=== PATIENT | male | born 1955 | race Caucasian/White ===

== ENCOUNTER 2018-03-08 20:22 | Emergency (ER) | payer SELFPAY ==
--- NOTE | 2018-03-08 21:22 | ED ---
Lower Extremity - HPI Summary HPI Summary: A 62 y/o male, accompanied by his , presents to [facility] with a chief complaint of right leg pain since the night of 03/05/18. At triage the patient rated his pain as a 0/10 in severity. He describes his pain as an aching pain. He also describes his pain as a strained muscle near his groin. Sitting down alleviates his pain while walking aggravates his pain. The patient reports that he has been seeing Dr. Shah. He denies gaining or losing weight, diaphoresis , fever, chills, erythema (eyes), sore throat, chest pain, shortness of breath, cough, abdominal pain, vomiting, nausea, dysuria, hematuria, rash and dizziness. The patient reports some swelling of his legs, claiming that his sidewalk repairer says that he has pitting edema. He denies taking water pills. He reports that he has an inguinal hernia on his right side and that it is always coming in and out. He reports sleeping on one thin pillow at night. He claims that he just got over an upper respiratory infection. Per triage note the patient denies a Hx of blood clots. BP in room 169/97. He is concerned because over the past year he has been very sedentary, sitting at his desk for 12 hours a day. - History of Current Complaint Chief Complaint: EDExtremityUpper Stated Complaint: RT LEG PAIN Time Seen by Provider: 03/08/18 20:52 Hx Obtained From: Patient, Family/Yard Warehouse Worker - Mechanism Of Injury: Unknown Onset of Pain: Days Onset/Duration: Days Severity Initially: Mild Severity Currently: Mild Pain Intensity: 0 Pain Scale Used: 0-10 Numeric Timing: Constant, Lasting Days Location: Is Diffuse Character Of Pain: Aching Associated Signs And Symptoms: Positive: Swelling. Negative: Fever, Dizziness Aggravating Factor(s): Standing Alleviating Factor(s): Other - sitting Able to Bear Weight: Yes - Allergies/Home Medications Allergies/Adverse Reactions: Allergies Allergy/AdvReac Type Severity Reaction Status Date / Time No Known Allergies Allergy Verified 03/08/18 20:29 PMH/Surg Hx/FS Hx/Imm Hx Endocrine/Hematology History: Denies: Hx Diabetes Cardiovascular History: Reports: Other Cardiovascular Problems/Disorders - CAD Denies: Hx Congestive Heart Failure, Hx Hypertension History: Denies: Hx Renal Disease - Surgical History Surgery Procedure, Year, and Place: RCA STENT 2009 Infectious Disease History: No Infectious Disease History: Denies: Traveled Outside the [place] in Last 30 Days - Family History Known Family History: Negative: Cardiac Disease, Hypertension, Diabetes - Social History Alcohol Use: Daily Alcohol Amount: 2-3 glasses wine Substance Use Type: Reports: None Review of Systems Negative: Fever, Chills, Skin Diaphoresis Negative: Erythema Negative: Sore Throat Negative: Chest Pain Negative: Shortness Of Breath, Cough Negative: Abdominal Pain, Vomiting, Nausea Negative: dysuria, hematuria Positive: Myalgia, Edema Negative: Rash Neurological: Negative - dizziness All Other Systems Reviewed And Are Negative: Yes Physical Exam - Summary Physical Exam Summary: Constitutional: Well-developed, Well-nourished, Alert. (-) Distressed Skin: Warm, Dry HENT: Normocephalic; Atraumatic Eyes: Conjunctiva normal Neck: Musculoskeletal ROM normal neck. (-) JVD, (-) Stridor, (-) Tracheal deviation Cardio: Rhythm regular, rate normal, Heart sounds normal; Intact distal pulses; The pedal pulses are 2+ and symmetric. Radial pulses are 2+ and symmetric. (-) Murmur Pulmonary/Chest wall: Effort normal. (-) Respiratory distress, (-) Wheezes, (-) Rales Abd: Soft, (-) epigastric tenderness, (-) Distension, (-) Guarding, (-) Rebound Musculoskeletal: Able to tolerate flexion of the hip and lateral rotation of the leg (-) Edema Lymph: (-) Cervical adenopathy Neuro: Alert, Oriented x3 Psych: Mood and affect Normal Gu: no palpable hernias Triage Information Reviewed: Yes Vital Signs On Initial Exam: Initial Vitals Temp Pulse Resp BP Pulse Ox 98.6 F 80 16 153/97 96 03/08/18 20:25 03/08/18 20:25 03/08/18 20:25 03/08/18 20:25 03/08/18 20:25 Vital Signs Reviewed: Yes Diagnostics - Vital Signs Vital Signs Temp Pulse Resp BP Pulse Ox 03/08/18 20:25 98.6 F 80 16 153/97 96 - Laboratory Lab Statement: Any lab studies that have been ordered have been reviewed, and results considered in the medical decision making process. - Ultrasound No standard instances Ultrasound Interpretation Completed By: ED Physician Summary of Ultrasound Findings: Negative for DVT. Discussed with process technician. Pending official imaging report. Lower Extremity Course/Dx - Course Course Of Treatment: A 62 y/o male, accompanied by his , presents to [facility] with a chief complaint of right leg pain since the night of 03/05/18. The physical exam revealed no palpable hernias and that he was able to tolerate flexion of the hip and lateral rotation of the leg. Discussed case with Juan Alberto the technical training instructor, who reported no DVT. The patient will be discharged. He is agreeable with this plan. - Diagnoses Provider Diagnoses: Hip strain Discharge - Sign-Out/Discharge Documenting (check all that apply): Patient Departure - DC Patient Received Moderate/Deep Sedation with Procedure: No - Discharge Plan Condition: Stable Disposition: HOME Referrals: [facility] [facility] [place] [facility] [place]Outside] (3-5 days) Additional Instructions: Return to the ED if you experience any new or worsening symptoms. - Attestation Statements Document Initiated by Scribe: Yes Documenting Scribe: Dannie Tai Provider For Whom Scribe is Documenting (Include Credential): Cole Carmona MD Scribe Attestation: Dannie Barry, scribed for Cole Carmona MD on 03/08/18 at [id number].
[2018-03-08 22:54] VITALS: BP 138/91
== END 2018-03-08 22:53 | disposition home or self-care (01) ==
LOC: ED 20:22
DX: S76.011A Strain of muscle, fascia and tendon of right hip, initial encounter (principal); X58.XXXA Exposure to other specified factors, initial encounter; Y92.9 Unspecified place or not applicable; R60.0 Localized edema; I25.10 Atherosclerotic heart disease of native coronary artery without angina pectoris; Z95.5 Presence of coronary angioplasty implant and graft
CPT/HCPCS: 99282